=== PATIENT | male | born 2000 | race Two or more races ===

== ENCOUNTER 2024-10-31 16:36 | Inpatient (IN) | payer MEDICAID ==
[~2024-10-31] VITALS: Ht 172.7 cm; Wt 96.6 kg
[2024-10-31 17:32] LABS: BASOPHILS % (AUTO) 0.2 % (0.0-2.0); HEMATOCRIT 35 % (39-51); HEMOGLOBIN 11.2 g/dL (13.5-17.5); LYMPHOCYTES # (AUTO) 0.1 K/uL (0.8-4.8); LYMPHOCYTES % (AUTO) 0.8 % (20.0-44.0); MEAN CORPUSCULAR HEMOGLOBIN 28 PG (26.0-33.0); MEAN CORPUSCULAR HGB CONC 32 g/dl (31.0-36.0); MEAN CORPUSCULAR VOLUME 88 fL (80-96); MONOCYTES % (AUTO) 0.4 % (2.0-12.0); NEUTROPHILS # (AUTO) 10.8 K/uL (1.8-8.9); NEUTROPHILS % (AUTO) 98.6 % (43.0-81.0); PLATELET COUNT (AUTO) 171 K/uL (150-450); RED BLOOD CELL COUNT(AUTO) 4.01 MIL/uL (4.5-6.0); RED CELL DISTRIBUTION WIDTH 21.4 % (11.5-15.0); WHITE BLOOD COUNT (AUTO) 10.9 K/uL (4.3-11.0)
[2024-10-31] MEDS ORDERED: HYDROMORPHONE 1 MG/1 ML DISP.SYRIN ONE (17:39)
[2024-10-31] MEDS ORDERED: ONDANSETRON HCL/PF 4 MG/2 ML VIAL ONE (17:39)
[2024-10-31] MEDS ORDERED: diphenhydrAMINE HCL 50 MG/ML VIAL ONE (17:39)
[2024-10-31 17:42] LABS: CALCIUM, SERUM 9.4 mg/dL (8.5-10.1); CARBON DIOXIDE 21 mmol/L (21-32); CHLORIDE 104 mmol/L (98-107); CREATININE 1.7 mg/dL (0.6-1.3); GLUCOSE 255 mg/dL (74-106); POTASSIUM 4.6 mmol/L (3.5-5.1); SODIUM SERUM 140 mmol/L (136-145); UREA NITROGEN, BLOOD 16 mg/dL (7-18)
[2024-10-31] MEDS: diphenhydrAMINE HCL 50 MG/ML VIAL IV ONE ×2 (17:52→22:38)
[2024-10-31 17:55] LABS: LACTIC ACID 8.3 mmol/L (0.4-2.0)
[2024-10-31] MEDS ORDERED: CT SWABBABLE VALVE TRANS SET 1 EA INFUS.SET MC ONE (17:55)
[2024-10-31] MEDS ORDERED: IV NS 0.9% 250 ML IV ONE (17:55)
[2024-10-31 17:56] LABS: ALBUMIN 3.1 g/dL (3.4-5.0); ALKALINE PHOSPHATASE 69 U/L (46-116); ASPARTATE AMINOTRANSFERASE 17 U/L (15-37); BILIRUBIN,DIRECT 0.1 mg/dL (0.0-0.2); BILIRUBIN,TOTAL 0.9 mg/dL (0.2-1.0); NT-PRO BNP 34 pg/mL (0-125); TOTAL PROTEIN, SERUM 6.3 g/dL (6.4-8.2)
[2024-10-31] MEDS: ONDANSETRON HCL/PF 4 MG/2 ML VIAL IVP ONE (17:59)
[2024-10-31] MEDS: IV NS 0.9% 1,000 ML BAG IV ONE (17:59)
[2024-10-31] MEDS: HYDROMORPHONE 1 MG/1 ML DISP.SYRIN IV ONE ×2 (17:59→20:17)
[2024-10-31 18:13] LABS: ALANINE AMINOTRANSFERASE 70 U/L (12-78)
[2024-10-31] MEDS: CEFEPIME 1 GM in IV D5W 50 ML IV ONE (18:27)
[2024-10-31 18:37] LABS: INR 0.96 (0.91-1.10); PARTIAL THROMBOPLASTIN TIME 20.5 SEC (24.3-34.3); PROTHROMBIN TIME 10.2 SECS (9.2-11.1)
[2024-10-31] MEDS: VANCOMYCIN 1 GM in IV D5W 250 ML IV ONE (18:45)
[2024-10-31 20:22] LABS: APPEARANCE,URINE Clear (CLEAR); BILIRUBIN,URINE Negative (NEGATIVE); BLOOD, URINE Negative Ery/uL (NEGATIVE); COLOR,URINE YELLOW (YELLOW); KETONES,URINE Trace mg/dL (NEGATIVE); LEUKOCYTE ESTERASE ,URINE Negative (NEGATIVE); NITRITE, URINE Negative (NEGATIVE); PH,URINE 5.5 (5.0-8.0); PROTEIN,URINE Trace mg/dl (NEGATIVE); UGLUCOSE 500 MG/DL mg/dL (NEGATIVE); UROBILINOGEN,URINE 0.2 EU/dL (0.2)
[2024-10-31] MEDS ORDERED: POLYETHYLENE GLYCOL 3350 17 GM POWD.PACK PO PRN (20:30)
[2024-10-31] MEDS ORDERED: ONDANSETRON HCL/PF 4 MG/2 ML VIAL IVP PRN (20:30)
[2024-10-31] MEDS ORDERED: MAGNESIUM HYDROXIDE 30 ML UDC PO PRN (20:30)
[2024-10-31] MEDS ORDERED: MAG HYDROX/AL HYDROX/SIMETH 30 ML UDC PO PRN (20:30)
[2024-10-31] MEDS ORDERED: ACETAMINOPHEN 325 MG TABLET PO PRN (20:30)
[2024-10-31] MEDS ORDERED: CEFEPIME 1 GM in IV D5W 50 ML IV SCH (20:30)
[2024-10-31 22:20] VITALS: BP 147/96; TEMP 98.8; O2SAT 100
[2024-10-31] MEDS: IV NS 0.9% 1,000 ML IV PRN (22:37)
[2024-10-31] MEDS: HYDROMORPHONE 1 MG/1 ML DISP.SYRIN IV PRN (22:37)
[2024-10-31 22:43] LABS: ADD URINE CULTURE NO; BACTERIA,URINE Rare /HPF (None Seen); RBC,URINE NONE SEEN /HPF (0-2); SQUAMOUS EPITHELIAL CELL,UR None Seen /HPF (None Seen); WBC,URINE 0-2 /HPF (0-3)
[2024-11-01] VITALS: BP 132/89; TEMP 98.4; O2SAT 99
[2024-11-01] MEDS: CEFEPIME 1 GM in IV D5W 50 ML IV SCH (01:01)
[2024-11-01 04:00] VITALS: BP 122/78; TEMP 97.9; O2SAT 98
[2024-11-01 08:00] VITALS: BP 132/93; TEMP 97.9; O2SAT 100
[2024-11-01] MEDS: VANCOMYCIN HCL 1.25 GM in IV D5W 250 ML IV SCH (08:05)
[2024-11-01] MEDS ORDERED: diphenhydrAMINE HCL 50 MG/ML VIAL IV PRN (16:30)
[2024-11-01] MEDS ORDERED: LEVO500T90 PO (16:44)
[2024-11-01] MEDS: HYDROMORPHONE 1 MG/1 ML DISP.SYRIN IV ONE (17:23)
[2024-11-01 18:10] LABS: BASOPHILS % (AUTO) 0.4 % (0.0-2.0); EOSINOPHILS % (AUTO) 0.4 % (0.0-6.0); HEMATOCRIT 33 % (39-51); HEMOGLOBIN 10.2 g/dL (13.5-17.5); LYMPHOCYTES # (AUTO) 0.5 K/uL (0.8-4.8); LYMPHOCYTES % (AUTO) 3.8 % (20.0-44.0); MEAN CORPUSCULAR HEMOGLOBIN 28 PG (26.0-33.0); MEAN CORPUSCULAR HGB CONC 31 g/dl (31.0-36.0); MEAN CORPUSCULAR VOLUME 89 fL (80-96); MONOCYTES # (AUTO) 0.7 K/uL (0.1-1.30); MONOCYTES % (AUTO) 5.6 % (2.0-12.0); NEUTROPHILS # (AUTO) 11.5 K/uL (1.8-8.9); NEUTROPHILS % (AUTO) 89.8 % (43.0-81.0); PLATELET COUNT (AUTO) 145 K/uL (150-450); RED BLOOD CELL COUNT(AUTO) 3.69 MIL/uL (4.5-6.0); RED CELL DISTRIBUTION WIDTH 21.6 % (11.5-15.0); WHITE BLOOD COUNT (AUTO) 12.8 K/uL (4.3-11.0)
[2024-11-01 18:15] LABS: CALCIUM, SERUM 8.3 mg/dL (8.5-10.1); CARBON DIOXIDE 29 mmol/L (21-32); CHLORIDE 105 mmol/L (98-107); CREATININE 1.1 mg/dL (0.6-1.3); GLUCOSE 154 mg/dL (74-106); POTASSIUM 4.1 mmol/L (3.5-5.1); SODIUM SERUM 141 mmol/L (136-145); UREA NITROGEN, BLOOD 19 mg/dL (7-18)
[2024-11-01 18:37] LABS: LACTIC ACID 2.5 mmol/L (0.4-2.0)
[2024-11-01] MEDS: CEFEPIME 2 GM in IV D5W 100 ML IV SCH (20:26)
== END 2024-11-02 10:33 | disposition left against medical advice (07) | DRG 144 ==
LOC: ER 16:42 → TELE1 21:37 → MEDSG1 11-01 17:13
DX: J98.4 Other disorders of lung (principal); C78.01 Secondary malignant neoplasm of right lung; E87.20 Acidosis, unspecified; E44.1 Mild protein-calorie malnutrition; D62 Acute posthemorrhagic anemia; E88.09 Other disorders of plasma-protein metabolism, not elsewhere classified; T81.89XA Other complications of procedures, not elsewhere classified, initial encounter; E66.9 Obesity, unspecified; Z68.30 Body mass index [BMI] 30.0-30.9, adult; Z76.5 Malingerer [conscious simulation]; Z90.49 Acquired absence of other specified parts of digestive tract; Z92.21 Personal history of antineoplastic chemotherapy; Z85.47 Personal history of malignant neoplasm of testis; Z90.79 Acquired absence of other genital organ(s); Z90.2 Acquired absence of lung [part of]; Z86.711 Personal history of pulmonary embolism; S81.802S Unspecified open wound, left lower leg, sequela; Y84.8 Other medical procedures as the cause of abnormal reaction of the patient, or of later complication, without mention of misadventure at the time of the procedure; Y92.89 Other specified places as the place of occurrence of the external cause; M89.8X9 Other specified disorders of bone, unspecified site; Z91.199 Patient's noncompliance with other medical treatment and regimen due to unspecified reason; R73.9 Hyperglycemia, unspecified; K62.5 Hemorrhage of anus and rectum; F11.20 Opioid dependence, uncomplicated; Z92.3 Personal history of irradiation
CPT/HCPCS: 36415; 71045-TC; 76770-TC; 80048-TC; 80076-TC; 81001; 83605-TC; 83880; 84484-TC; 85025-TC; 85730-TC; 87040-TC; 87086-TC; 93307-TC; A4223; G0378; J0692; J1171; J1200; J2405; J3370; J3490; J7030; J7050; J7060

== ENCOUNTER 2025-03-12 11:21 | Emergency (ER) | payer SELFPAY ==
[~2025-03-12] VITALS: Ht 170.2 cm; Wt 95.7 kg
[~2025-03-12 11:21] MED LIST: LEVO500T90 PO
[2025-03-12 11:55] VITALS: BP 136/90; TEMP 98.4; O2SAT 99
[2025-03-12] MEDS: KETOROLAC TROMETHAMINE 15 MG/ML VIAL IV ONE (12:02)
== END 2025-03-12 12:10 | disposition left against medical advice (07) ==
LOC: ER 11:26
DX: R06.02 Shortness of breath (principal); R07.89 Other chest pain; Z85.47 Personal history of malignant neoplasm of testis; Z88.5 Allergy status to narcotic agent; Z88.8 Allergy status to other drugs, medicaments and biological substances; Z91.041 Radiographic dye allergy status; Z79.899 Other long term (current) drug therapy; Z53.29 Procedure and treatment not carried out because of patient's decision for other reasons